=== PATIENT | female | born 1985 | race Caucasian/White ===

== ENCOUNTER 2019-06-10 08:57 | Emergency (ER) | payer MEDICAID ==
--- NOTE | 2019-06-10 09:22 | UC ---
Headache HPI - HPI Summary HPI Summary: 34 year old female presents with sinus congestion for the past 10 days and headache for the past 3 days. Rates headache as 8/10 today, was nauseated and vomited this morning. She did not take any medication for her symptoms this morning due to vomiting. Denies neck stiffness, fever, visual disturbance nor focal weakness. - History Of Current Complaint Chief Complaint: UCGeneralIllness Stated Complaint: CONGESTION HEADACHE Time Seen by Provider: 06/10/19 09:11 Hx Obtained From: Patient Hx Last Menstrual Period: 10/28/18 Onset/Duration: Gradual Onset, Lasting Days Onset Of Symptoms: Still Present Pain Intensity: 8 Timing: Constant Character: Throbbing, Migraine - h/o migraines, previously treated with imitrex and maxalt. Aggravating Factor(s): Bright Lights Allevating Factor(s): Nothing Associated Signs And Symptoms: Positive: Nausea, Vomiting, Sinus Pressure. Negative: Dizziness, Fever, Neck Pain, Neck Stiffness, Visual Changes - Allergies/Home Medications Allergies/Adverse Reactions: Allergies Allergy/AdvReac Type Severity Reaction Status Date / Time No Known Allergies Allergy Verified 06/10/19 09:12 PMH/Surg Hx/FS Hx/Imm Hx Previously Healthy: Yes - Surgical History Surgical History: Yes Surgery Procedure, Year, and Place: - Family History Known Family History: Positive: Non-Contributory - Social History Alcohol Use: None Substance Use Type: None Smoking Status (MU): Never Smoked Tobacco Review of Systems All Other Systems Reviewed And Are Negative: Yes Constitutional: Negative: Fever, Chills, Fatigue Skin: Negative: Rash, Bruising Eyes: Positive: Photophobia. Negative: Blurred Vision, Diplopia ENT: Positive: Nasal Discharge, Sinus Congestion, Sinus Pain/Tenderness. Negative: Sore Throat Respiratory: Negative: Shortness Of Breath, Cough Cardiovascular: Negative: Palpitations, Chest Pain Gastrointestinal: Positive: Vomiting, Nausea. Negative: Abdominal Pain, Diarrhea Genitourinary: Negative: Dysuria, Frequency, Urgency Motor: Negative: Weakness Neurovascular: Negative: Decreased Sensation, Decreased Pulses Musculoskeletal: Negative: Decreased ROM Neurological: Positive: Headache. Negative: Weakness, Paresthesia, Numbness Psychological: Positive: Negative Is Patient Immunocompromised?: No Physical Exam Triage Information Reviewed: Yes Appearance: Well-Appearing Vital Signs: Initial Vital Signs Temp 98.9 F 06/10/19 09:08 Pulse 81 06/10/19 09:08 Resp 16 06/10/19 09:08 BP 142/118 06/10/19 09:08 Pulse Ox 99 06/10/19 09:08 Vital Signs Reviewed: Yes Eyes: Positive: Conjunctiva Clear ENT: Positive: Pharynx normal, TMs normal, Sinus tenderness - maxillary. Negative: Tonsillar swelling, Tonsillar exudate Neck: Positive: Supple, Nontender, No Lymphadenopathy. Negative: Nuchal Rigidity Respiratory: Positive: Lungs clear, Normal breath sounds Cardiovascular: Positive: RRR, No Murmur Abdomen Description: Positive: Nontender, Soft Musculoskeletal: Positive: Strength Intact, ROM Intact Neurological: Positive: Alert, Muscle Tone Normal Skin: Negative: Rashes Headache Course/Dx - Course Course Of Treatment: Repeat manual b/p was 138/88. Normal neurological exam. - Differential Dx/Diagnosis Differential Diagnosis/HQI/PQRI: Migraine, Sinus Headache, Tension Headache Provider Diagnosis: Sinusitis, Headache Discharge ED - Sign-Out/Discharge Documenting (check all that apply): Patient Departure All imaging exams completed and their final reports reviewed: No Studies - Discharge Plan Condition: Stable Disposition: HOME Prescriptions: Amoxicillin/Clavulanate TAB* [Augmentin TAB 875*] 875 mg PO BID 10 Days #20 tab Ibuprofen TAB* [Motrin TAB* 800 MG] 800 mg PO Q8H PRN #15 tab PRN Reason: Pain - Severe Ondansetron TAB* [Zofran 4 MG Tab*] 4 mg PO Q6H PRN #6 tab PRN Reason: Nausea/Vomiting Patient Education Materials: Sinusitis (ED), Acute Headache (ED) Referrals: No Primary Care Phys,NOPCP [Primary Care Provider] - Additional Instructions: Take Zofran ODT 30-60 minutes prior to taking antibiotic or ibuprofen to decrease the likelyhood of vomiting. If your symptoms persist or worsen, recommend follow-up in the Emergency Department. - Billing Disposition and Condition Condition: STABLE Disposition: Home
[2019-06-10 09:37] VITALS: BP 138/88
== END 2019-06-10 09:54 | disposition home or self-care (01) ==
LOC: UCCORT 08:57
DX: J32.9 Chronic sinusitis, unspecified (principal); R51 Headache
CPT/HCPCS: 99212; G0463